=== PATIENT | male | born 1975 | race Caucasian/White ===

== ENCOUNTER 2018-08-02 16:17 | Emergency (ER) | payer SELFPAY ==
[2018-08-02] MEDS ORDERED: Adacel (T-DAP) 0.5 ML VIAL ONE (16:27)
[2018-08-02] MEDS ORDERED: HYDROcodone/Acetaminophen 10/325 mg Tablet ONE (16:30)
[2018-08-02] MEDS ORDERED: Cephalexin 500 MG CAP ONE (17:14)
== END 2018-08-02 17:25 | disposition home or self-care (01) ==
LOC: MADERS 16:17
DX: S61.211A Laceration without foreign body of left index finger without damage to nail, initial encounter (principal); W29.3XXA Contact with powered garden and outdoor hand tools and machinery, initial encounter
CPT/HCPCS: 12001; 90471; 90715